=== PATIENT | female | born 1955 | race African-American/Black ===

== ENCOUNTER 2021-04-29 16:46 | Emergency (ER) | payer OTHER ==
[~2021-04-29] VITALS: Ht 167.6 cm; Wt 78.5 kg
[2021-04-29] MEDS ORDERED: CARAFATE1 GM PO (17:09)
[2021-04-29] MEDS ORDERED: REGLAN10 MG PO (17:09)
[2021-04-29] MEDS ORDERED: LYRICA25 MG PO (17:10)
[2021-04-29] MEDS ORDERED: CYMBALTA20 MG PO (17:11)
[2021-04-29] MEDS ORDERED: POTASSIUM CHLOR8 MEQ PO (17:11)
[2021-04-29] MEDS ORDERED: [UNRECOGNIZED DRUG - OTHER] (17:13)
[2021-04-29] MEDS ORDERED: [UNRECOGNIZED DRUG - OTHER] (17:13)
[2021-04-29 17:28] LABS: ABSOLUTE BASOPHILS 0.1 thou/uL (0.0-0.2); ABSOLUTE MONOCYTES 0.6 thou/uL (0.0-1.2); ABSOLUTE NEUTROPHILS 4.5 thou/uL (1.6-8.1); BASOPHILS 0.8 %; EOSINOPHILS 0.4 %; HEMATOCRIT 44.8 % (37.0-47.0); HEMOGLOBIN 14.6 gm/dL (12.0-15.0); LYMPHOCYTES 43.1 %; MCH 27.9 pg (26.0-34.0); MCHC 32.5 g/dL (28.0-37.0); MCV 85.8 fL (80.0-100.0); MONOCYTES 6.8 %; MPV 7.2 fl. (7.2-11.1); NUCLEATED RBCS 0 /100WBC; PLATELET COUNT* 503 thou/uL (150-400); POLYS 48.9 %; RBC 5.22 mil/uL (4.20-5.00); RDW-CV 13.5 % (10.5-14.5); WBC 9.3 thou/uL (4.0-11.0)
[2021-04-29 17:45] LABS: ANION GAP 19 mmol/L (7-16); BUN 11 mg/dL (7-18); CALCIUM 10.1 mg/dL (8.5-10.1); CHLORIDE 97 mmol/L (98-107); CO2 22 mmol/L (21-32); CREATININE 0.8 mg/dL (0.6-1.3); GLUCOSE 144 mg/dL (70-99); POTASSIUM 3.4 mmol/L (3.5-5.1); SODIUM 138 mmol/L (136-145)
[2021-04-29 17:57] LABS: ALBUMIN 4.4 g/dL (3.4-5.0); ALKALINE PHOSPHATASE 119 U/L (46-116); CK-MB MASS < 0.5 ng/mL (<0.5-3.6); LIPASE 127 U/L (73-393); MAGNESIUM 1.9 mg/dL (1.8-2.4); NT-PRO BRAIN NAT PEPTIDE 348 pg/mL (<300); SGOT 16 U/L (15-37); SGPT 21 U/L (30-65); TOTAL BILIRUBIN 0.9 mg/dL (<0.1-1.0); TOTAL PROTEIN 8.6 g/dL (6.4-8.2)
[2021-04-29] MEDS ORDERED: ATIVAN1 M1 PO (18:23)
[2021-04-29] MEDS ORDERED: ZOFRAN ODT4 MG DISSOLVE (18:23)
[2021-04-29 18:34] VITALS: BP 134/68
--- NOTE | 2021-04-30 11:15 | EKG ---
[place] [address] ELECTROCARDIOGRAM REPORT Name: KEIRAMARZENA Sarwat Room: [facility]#: [id number] Admission: 04/29/21 Attend Phys: Discharge: 04/29/21 Date of : 55 Date of Service: 04/29/21 1653 Report #: [id number] THIS REPORT FOR: //name// [facility] ED Test Date: 2021-04-29 Test Time: 16:53:57 Pat Name: MARZENA CROCKETT Department: Room: Gender: F Engine Maintenance Mechanic: KRISTIE : 1955 Requested By: Jorge Beltran Order Number: [id number] MD: De Person Measurements Intervals [place] Rate: 115 P: 64 AR: 184 QRS: -29 QRSD: 91 T: 67 QT: 350 QTc: 484 Interpretive Statements Sinus tachycardia Probable left atrial enlargement Borderline left axis deviation Borderline prolonged QT interval No previous ECG available for comparison Electronically Signed On 04-30-2021 11:15:15 CDT by De Person [email or web address] <ELECTRONICALLY SIGNED> By: De Person MD, [facility] 04/30/21 1115 1653 1653 De Person MD, [facility] /EPI
== END 2021-04-29 18:35 | disposition home or self-care (01) ==
LOC: M.ERS 16:46
PROVIDERS: Family Medicine
DX: F41.9 Anxiety disorder, unspecified (principal); Z79.899 Other long term (current) drug therapy